=== PATIENT | male | born 1970 ===

== ENCOUNTER 2024-12-12 10:37 | Day surgery (SDC) | payer OTHER ==
[~2024-12-12] VITALS: Ht 162.6 cm; Wt 68.0 kg
[~2024-12-12 10:37] MED LIST: Lactated Ringer's 1,000 ML IV ONE; propofoL 50 ML IV ONE
[2024-12-12] MEDS ORDERED: FAMO20 (11:04)
[2024-12-12] MEDS ORDERED: Aspir 8181 MG (11:04)
[2024-12-12] MEDS ORDERED: Lisinopril-Hct1 EAC4 (11:04)
[2024-12-12] MEDS ORDERED: OZEMPIC0.25 MG/02 (11:05)
[2024-12-12] MEDS ORDERED: Crestor40 MG (11:05)
[2024-12-12] MEDS ORDERED: Colace100 MG (11:06)
[2024-12-12] MEDS ORDERED: Lactated Ringer's 1,000 ML IV ONE (11:32)
== END 2024-12-12 12:40 | disposition home or self-care (01) ==
LOC: ORSCSDS 10:37
DX: Z12.11 Encounter for screening for malignant neoplasm of colon (principal); D12.2 Benign neoplasm of ascending colon; D12.3 Benign neoplasm of transverse colon; K62.1 Rectal polyp; K64.4 Residual hemorrhoidal skin tags; R19.5 Other fecal abnormalities; Z80.0 Family history of malignant neoplasm of digestive organs; E11.9 Type 2 diabetes mellitus without complications; G47.33 Obstructive sleep apnea (adult) (pediatric); I10 Essential (primary) hypertension; E78.5 Hyperlipidemia, unspecified; Z79.85 Long-term (current) use of injectable non-insulin antidiabetic drugs; Z79.82 Long term (current) use of aspirin; Z79.899 Other long term (current) drug therapy
CPT/HCPCS: 82947; 88305; J2704; J7120